=== PATIENT | male | born 1925 | race Caucasian/White ===

== ENCOUNTER 2016-06-27 22:24 | Emergency (ER) | payer OTHER ==
[~2016-06-27] VITALS: Ht 172.7 cm; Wt 57.6 kg
[~2016-06-27 22:24] MED LIST: ASPIR-LOW81 MG ORAL; AXIRON30 MG/1.5 TD; CENTRUM SILVER1 EAC4 PO; CIPROFLOXACIN500 M2 ORAL; DONEPEZIL HCL5 M2 ORAL; FLOMAX0.4 MG ORAL; FUROSEMIDE20 M1 ORAL; LEXAPRO10 MG ORAL; MELATONIN 3 MG1 EACH ORAL; MELOXICAM15 MG PO; METFORMIN HCL850 M1 ORAL; OMEPRAZOLE20 M2 ORAL; OSCAL D500 MG GT; OXYBUTYNIN CHLOR5 M1 PO; POTASSIUM99 M3 PO; PROLIA60 MG/1 ML SUBQ; PROSCAR5 MG ORAL; TRAMADOL HCL50 MG ORAL; TRAMADOL-ACETA1 EACH ORAL; TRAZODONE HCL150 MG ORAL
--- NOTE | 2016-06-27 23:27 | Emergency Room Report ---
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 He has a history of right internal hernia present there for years. He presents with chief complaint of right lower quadrant abdominal pain for last few hours. No fever or chills. Worse with palpation. No nausea no vomiting. Pain is 8/10. Allergies: Coded Allergies: ESCITALOPRAM (Verified Allergy, Unknown, 06/27/16) LIDOCAINE (Verified Allergy, Unknown, 06/27/16) Uncoded Allergies: ALMOND MILK (Allergy, Unknown, 06/27/16) ANTICHOLINERGICS (Allergy, Unknown, 06/27/16) Patient History Past Medical History: see triage record, old chart reviewed Past Surgical History: other Pertinent Family History: none Social History: Denies: smoking Immunizations: other Reviewed Nursing Documentation: PMH: Agreed, PSxH: Agreed Nursing Documentation-PMH Hx Cardiac Problems: Yes Hx Hypertension: Yes Hx Pacemaker: No Hx Diabetes: Yes Hx Cancer: No Hx Dialysis: No Hx Neurological Problems: Yes Hx Cerebrovascular Accident: No Hx Transient Ischemic Attacks: No Hx Dementia: No Hx Alzheimer's Disease: No Hx Parkinson's Disease: No Hx Meningitis: No Hx Encephalitis: No Hx Seizures: No Hx Epilepsy: No Hx Multiple Sclerosis: No Hx Cerebral Palsy: No Hx Amyotrophic Lat Sclerosis: No Hx [place] Syndrome: No Hx Paralysis: No Hx Peripheral Neuropathy: No Hx Spinal Cord Injury: No Hx Head Trauma: No Hx Traumatic Brain Injury: No Hx Memory Loss: No Hx Concentration Difficulty: No Hx Speech Problem: No Hx Tremors: No Hx Vertigo: No Hx Syncope: Yes Hx Headaches: No Hx Aphasia: No Hx Dysphasia: No Hx Numbness: No Hx Weakness: No Hx Fatigue: No Hx Neurologic Surgery: No Hx Brain Shunt: No Review of Systems Eye: Denies: blurred vision, eye pain ENT: Denies: ear pain, nose congestion, throat swelling Respiratory: Denies: cough, shortness of breath Cardiovascular: Denies: chest pain, palpitations Gastrointestinal: Reports: abdominal pain, Denies: diarrhea, nausea, vomiting Musculoskeletal: Denies: back pain, joint pain Skin: Denies: rash Neurological: Denies: headache, numbness Endocrine: Denies: increased thirst, increased urine Hematologic/Lymphatic: Denies: easy bruising All Other Systems: negative except mentioned in HPI Physical Exam Vital Signs Date Time Temp Pulse Resp B/P Pulse Ox O2 Delivery O2 Flow Rate FiO2 06/27/16 22:50 98.1 109 18 160/108 98 Room Air vitals with htn [id number] EP Interpretation: reviewed, normal General Appearance: well appearing, no apparent distress, alert Head: normocephalic, atraumatic Eyes: bilateral eye EOMI, bilateral eye PERRL ENT: hearing grossly normal, normal pharynx Neck: full range of motion, supple, no meningismus Respiratory: chest non-tender, lungs clear, normal breath sounds Cardiovascular #1: regular rate, rhythm, no murmur Gastrointestinal: normal bowel sounds, non tender, no mass, no organomegaly, no bruit, non-distended Genitourinary: other - tender rt inguinal hernia. Musculoskeletal: back normal, gait/station normal, normal range of motion Psychiatric: mood/affect normal Skin: warm/dry Procedures Additional Procedure Procedure Narrative Procedure: Reduction of hernia Indication: Incarcerated hernia Description: With gentle pressure I was able to reduce the right inner hernia. Patient pain went away. He tolerated procedure without a problem. Medical Decision Making Diagnostic Impression: Primary Impression: Incarcerated inguinal hernia, unilateral Additional Impression: Hypertension Qualified Codes: I10 - Essential (primary) hypertension ER Course Patient presents with incarcerated regular hernia. Reduce easily. Pain resolved. No evidence of stimulation. We'll discharge home. No evidence of acute abdomen. Last Vital Signs Date Time Temp Pulse Resp B/P Pulse Ox O2 Delivery O2 Flow Rate FiO2 06/27/16 22:50 98.1 109 18 160/108 98 Room Air Status: improved Disposition: HOME, SELF-CARE Condition: Stable Additional Instructions: Follow up with your doctor in 7 days. Return if worse. RUBEN ENGLAND M.D. Jun 27, 2016 23:27
[2016-06-27 23:35] VITALS: BP 160/108
[2016-06-27 23:36] VITALS: BP 1/1
== END 2016-06-27 23:30 | disposition home or self-care (01) ==
LOC: EMR 23:24
DX: K40.30 Unilateral inguinal hernia, with obstruction, without gangrene, not specified as recurrent (principal); I10 Essential (primary) hypertension; E11.9 Type 2 diabetes mellitus without complications
CPT/HCPCS: 99283; 99284